=== PATIENT | male | born 1965 | race Two or more races ===

== ENCOUNTER 2023-03-16 05:42 | Day surgery (SDC) | payer OTHER ==
[~2023-03-16] VITALS: Ht 167.6 cm; Wt 80.7 kg
[2023-03-16] MEDS ORDERED: PERCOCET 5-3251 EACH PO (09:43)
[2023-03-16] MEDS ORDERED: POLY119PG PO (09:43)
[2023-03-16] MEDS ORDERED: NEURONTIN300 MG PO (09:43)
== END 2023-03-16 11:40 | disposition home or self-care (01) ==
LOC: CIR.AMB 05:42
PROVIDERS: ATTEND Surgery
DX: K40.90 Unilateral inguinal hernia, without obstruction or gangrene, not specified as recurrent (principal); Z88.0 Allergy status to penicillin; Z20.822 Contact with and (suspected) exposure to COVID-19

== ENCOUNTER 2023-04-22 09:07 | Outpatient (CLI) | payer OTHER ==
[~2023-04-22 09:07] MED LIST: NEURONTIN300 MG PO; PERCOCET 5-3251 EACH PO; POLY119PG PO
== END 2023-04-22 09:17 | disposition home or self-care (01) ==
LOC: PPH VACUNA 09:07
PROVIDERS: ATTEND Emergency Medicine Pediatric Emergency Medicine
DX: Z23 Encounter for immunization (principal)

== ENCOUNTER 2024-05-25 04:00 | Outpatient (CLI) | payer OTHER | END 2024-05-25 04:15 | disposition home or self-care (01) | LOC: PPH VACUNA 04:00 | PROVIDERS: ATTEND Emergency Medicine Pediatric Emergency Medicine | DX: Z23 Encounter for immunization (principal) ==

== ENCOUNTER 2024-10-24 05:09 | Day surgery (SDC) | payer OTHER ==
[2024-10-19 08:31] VITALS: BP 156/89
[2024-10-19 08:48] LABS: URINE APPEARANCE Clear; URINE BILIRRUBIN Negative (NEGATIVE); URINE BLOOD Negative; URINE COLOR Yellow; URINE GLUCOSE Negative (NEGATIVE); URINE KETONE Negative (NEGATIVE); URINE LEUKOCYTE Negative; URINE NITRATE Negative; URINE PROTEIN Negative (NEGATIVE); URINE UROBILINOGEN 0.2 E.U./dl
[2024-10-19 08:52] LABS: HEMATOCRIT 41.9 % (39.0-48.0); HEMOGLOBIN 14.7 g/dL (13-16.00); MEAN CELL VOLUME 84.2 fL (80.0-100.00); MEAN CORPUSCULAR HEMOGLOBIN 29.6 pg (27.00-32.0); MEAN CORPUSCULAR HGB CONC 35.1 g/dl (32.0-36.0); PLATELET COUNT 288 K/uL (150-450); RED BLOOD COUNT 4.98 M/uL (4.00-6.00); RED CELL DISTRIBUTION WIDTH 13.1 % (11.5-14.5); URINE RBC 2.6 uL (0.0-20.8)
[2024-10-19 09:13] LABS: INR 1.04; PROTHROMBIN TIME 11.3 SECONDS (9.0-11.5)
[2024-10-19 09:27] LABS: URINE BACTERIA 2.4 uL (0.0-1933); URINE WBC 0.3 uL (0.0-23.2)
[2024-10-19 09:44] LABS: CALCIUM 9.1 mg/dL (8.5-10.1); CREATININE SERUM 0.99 mg/dL (0.70-1.30); GFR 77.37; POTASSIUM 4.11 mEq/L (3.5-5.1)
[~2024-10-24] VITALS: Ht 167.6 cm; Wt 78.9 kg
[2024-10-24] MEDS ORDERED: ERTAPENEM SODIUM 1,000 MG VIAL ONE (07:08)
[2024-10-24] MEDS ORDERED: BUPIVACAINE HCL/MPF 0.5% 30ML VIAL ONE (07:09)
[2024-10-24] MEDS ORDERED: ENOXAPARIN SODIUM 40 MG/0.4 ML SYRINGE SUBCUTANEO ONE (07:09)
[2024-10-24] MEDS ORDERED: SUGAMMADEX SODIUM 200 MG/2 ML VIAL IV ONE (08:39)
[2024-10-24] MEDS ORDERED: PERCOCET 5-3251 EACH PO (09:02)
[2024-10-24] MEDS ORDERED: POLY119PG PO (09:02)
[2024-10-24] MEDS ORDERED: CELEBREX200MG PO (09:02)
[2024-10-24] MEDS ORDERED: NEURONTIN300 MG PO (09:02)
== END 2024-10-24 13:00 | disposition home or self-care (01) ==
LOC: CIR.AMB 05:09
PROVIDERS: ATTEND Surgery
DX: K40.90 Unilateral inguinal hernia, without obstruction or gangrene, not specified as recurrent (principal); Z88.0 Allergy status to penicillin; I10 Essential (primary) hypertension
CPT/HCPCS: 49650; C1781

== ENCOUNTER 2025-02-05 06:58 | Outpatient (CLI) | payer OTHER ==
[~2025-02-05 06:58] MED LIST changes: +CELEBREX200MG PO
[2025-02-05 07:29] LABS: BASO % 0.6 % (0.1-1.2); EOS # 0.06 (0.04-0.54); EOS % 1.2 % (0.7-7.0); LYMPH # 1.61 (1.18-3.74); LYMPH % 32.2 % (19.3-53.1); MEAN PLATELET VOLUME 10.00 fl (9.4-12.4); MONO # 0.55 (0.24-0.82); MONO % 11.0 % (4.7-12.5); NEUT # 2.74 (1.56-6.13); NEUT % 54.8 % (34.0-71.1); RED CELL DISTRIBUTION WIDTH 11.7 % (11.6-14.4)
[2025-02-05 08:48] LABS: ALT/SGPT 31.0 U/L (12-78); AST/SGOT 18.0 U/L (15-37); BILIRUBIN TOTAL 0.97 mg/dL (0.3-1.2); BUN CREA RATIO 13.0 (7.0-25.0); CHOL HDL RATIO 3.2 (0-5.0); CREATININE SERUM 0.87 mg/dL (0.70-1.30); GFR 89.51; GLOBULINA 3.6 G/DL (2.4-3.5); GLUCOSE FASTING 93.0 mg/dL (65-100); HDL 61.0 mg/dl (40-60); LDL 122.0 mg/dl (0-130); OSMOLALITY SERUM 278.0 MOSM/KG (275-295); PROSTATIC SPECIFIC ANTIGEN 0.927 NG/ML (0.010-4.00); TSH 1.92 uIU/mL (0.358-3.74); VLDL 13.0 (0-39)
== END 2025-02-05 07:03 | disposition home or self-care (01) ==
LOC: LAB 06:58
PROVIDERS: ATTEND Internal Medicine
DX: I50.82 Biventricular heart failure (principal); I10 Essential (primary) hypertension; E78.9 Disorder of lipoprotein metabolism, unspecified; E11.8 Type 2 diabetes mellitus with unspecified complications